=== PATIENT | female | born 1980 | race American Indian/Alaskan Native ===

== ENCOUNTER 2017-05-05 05:46 | Emergency (ER) | payer BC ==
[2017-05-05 05:46] VITALS: BMI 42.5
[2017-05-05 06:01] VITALS: BP 123/82; PULSE 100; RESP 20; TEMP 98.6; O2SAT 98
--- NOTE | 2017-05-05 06:02 | C.PDOC ---
History Of Present Illness Patient with history of seizures, had a seizure [employer]. Mother heard a noise and went to check on the pt. patinet fell out of bed and had a genenralized tonic clonic seizures. Pt is on lamictal .Last seizure about 5-6 months ago. No f/c/n/ v. Patient does not appears to be post ictal Time Seen by Provider: 05/05/17 06:02 Chief Complaint (Nursing): Seizure History Per: Patient, Family History/Exam Limitations: no limitations Recent Seizure Activity Began: Hours Ago: (1) Number Of Seizures: One Length Of Seizures (Duration): Seconds Quality Of Seizure: Generalized Post-ictal Period: No Severity: Moderate Pain Scale Rating Of: 4 Recent travel outside of the [place]: No Additional History Per: Family Past Medical History Reviewed: Historical Data, Nursing Documentation, Vital Signs Vital Signs: Last Vital Signs Temp 98.6 F 05/05/17 05:57 Pulse 100 H 05/05/17 05:57 Resp 20 05/05/17 05:57 BP 123/82 05/05/17 05:57 Pulse Ox 98 05/05/17 06:09 - Medical History PMH: Seizures Family History: States: No Known Family Hx - Social History Hx Alcohol Use: No Hx Substance Use: No - Immunization History Hx Tetanus Toxoid Vaccination: No Hx Influenza Vaccination: No Hx Pneumococcal Vaccination: No Review Of Systems Constitutional: Negative for: Fever, Chills Eyes: Negative for: Vision Change ENT: Negative for: Throat Pain Cardiovascular: Negative for: Chest Pain Respiratory: Negative for: Shortness of Breath Gastrointestinal: Negative for: Nausea, Vomiting Musculoskeletal: Negative for: Back Pain Skin: Negative for: Rash Neurological: Positive for: Seizures Psych: Negative for: Anxiety Physical Exam - Physical Exam Appears: Non-toxic, No Acute Distress Skin: Warm, Dry Head: Normacephalic Eye(s): bilateral: Normal Inspection, PERRL, EOMI Oral Mucosa: Moist Neck: Supple Chest: Symmetrical Cardiovascular: Rhythm Regular Respiratory: No Rales, No Rhonchi, No Wheezing Gastrointestinal/Abdominal: Soft, No Tenderness, No Distention Back: No CVA Tenderness Extremity: Normal ROM Extremity: Bilateral: Atraumatic, Normal Color And Temperature, Normal ROM Pulses: Left Dorsalis Pedis: Normal, Right Dorsalis Pedis: Normal Neurological/Psych: Oriented x3, Normal Speech, Normal Cognition ED Course And Treatment - Laboratory Results Result Diagrams: 05/05/17 06:14 05/05/17 06:14 O2 Sat by Pulse Oximetry: 98 Pulse Ox Interpretation: Normal Reevaluation Time: 06:44 Reassessment Condition: Improved Disposition Counseled Patient/Family Regarding: Studies Performed, Diagnosis, Need For Followup - Disposition Referrals: George Patricia MD [Primary Care Provider] - Disposition: HOME/ ROUTINE Disposition Time: 06:02 Condition: FAIR Instructions: Epilepsy (DC) Forms: [facility] (Kinyarwanda) - Clinical Impression Clinical Impression: Seizure
[2017-05-05] MEDS ORDERED: Sodium Chloride 0.9% 500 ML IV ONE (06:04)
[2017-05-05 06:21] LABS: BASO % 0.4 % (0.0-2.0); EOS # 0.1 K/uL (0.0-0.7); HEMATOCRIT 32.9 % (34.0-47.0); LYMPH # 2.6 K/uL (1.0-4.3); LYMPH % 37.8 % (20.0-40.0); MEAN CELL VOLUME 67.3 fL (81.0-99.0); MEAN CORPUSCULAR HGB CONC 32.7 g/dL (33.0-37.0); MEAN PLATELET VOLUME 6.9 fL (7.2-11.7); MONO # 0.4 K/uL (0.0-0.8); MONO % 5.3 % (0.0-10.0); RED CELL DISTRIBUTION WIDTH 18.1 % (11.5-14.5); WHITE BLOOD COUNT 6.9 K/uL (4.8-10.8)
[2017-05-05 06:31] LABS: CHLORIDE 101 mmol/L (98-107)
[2017-05-05 06:32] LABS: POTASSIUM 3.9 mmol/L (3.6-5.2); SODIUM 137 mmol/L (132-148)
[2017-05-05 06:34] LABS: AST/SGOT 20 U/L (14-36); BILIRUBIN,TOTAL 0.3 mg/dL (0.2-1.3); BLOOD UREA NITROGEN 13 mg/dL (7-17); CARBON DIOXIDE 23 mmol/L (22-30); GFR AFRICAN-AMERICAN > 60
[2017-05-05 06:35] LABS: ALKALINE PHOSPHATASE 77 U/L (38-126); ALT/SGPT 33 U/L (9-52); CALCIUM 9.4 mg/dl (8.6-10.4); GLUCOSE,RANDOM 113 mg/dL (65-105)
== END 2017-05-05 06:50 | disposition home or self-care (01) ==
LOC: SUPCPDRO 05:46 → C.ER 05:46
DX: R56.9 Unspecified convulsions (principal)